=== PATIENT | female | born 1995 | race Caucasian/White ===

== ENCOUNTER 2017-10-12 19:20 | Emergency (ER) | payer BC, MEDICAID ==
--- NOTE | 2017-10-12 20:00 | ED Physician Documentation ---
PD HPI URI - Stated complaint Stated Complaint: SORE THROAT/CONGESTION - Chief complaint Chief Complaint: Heent - History obtained from History obtained from: Patient - History of Present Illness Timing - onset: Today (has had some sinus congestion and pressure with green discharge for few days to a week, but just started with sore throat this mrkathia.) Timing details: Gradual onset. No: Still present (sore throat less through the day, but still sore.) Associated symptoms: Nasal congestion, Sinus pain, Sore throat. No: Fever, Ear pain, Chest pain, Dyspnea Contributing factors: No: Sick contact Similar symptoms before: Has not had sx before Recently seen: Not recently seen Review of Systems Constitutional: denies: Fever, Chills Nose: reports: Rhinorrhea / runny nose, Sinus pressure / pain Throat: reports: Sore throat Respiratory: denies: Cough GI: denies: Vomiting, Diarrhea PD PAST MEDICAL HISTORY - Past Medical History Past Medical History: Yes Respiratory: Asthma Other Past Medical History: EOS - Past Surgical History Past Surgical History: Yes HEENT: Tonsil/Adenoidectomy - Present Medications Home Medications: Ambulatory Orders Medication Instructions Recorded Confirmed Azithromycin [Zithromax] 250 mg PO DAILY #4 tablet 10/12/17 Dexamethasone [Decadron] 4 mg PO DAILY #4 tablet 10/12/17 - Allergies Allergies/Adverse Reactions: Allergies Allergy/AdvReac Type Severity Reaction Status Date / Time acetaminophen [From Tylenol] Allergy Cramps Verified 10/12/17 19:29 - Social History Does the pt smoke?: No Smoking Status: Never smoker Does the pt drink ETOH?: No Does the pt have substance abuse?: No - Immunizations Immunizations are current?: Yes - POLST Patient has POLST: No PD ED PE NORMAL - Vitals Vital signs reviewed: Yes - General General: Alert and oriented X 3, Well developed/nourished - HEENT HEENT: Ears normal. No: Pharynx benign (mild redness but minimal swelling and no exudate. ) - Neck Neck: Supple, no meningeal sign, No adenopathy - Cardiac Cardiac: RRR, No murmur - Respiratory Respiratory: Clear bilaterally - Derm Derm: Normal color, Warm and dry, No rash - Neuro Neuro: Alert and oriented X 3, No motor deficit, Normal speech Results - Vitals Vitals: Vital Signs - 24 hr 10/12/17 10/12/17 19:25 20:22 Temperature 36.4 C L 36.4 C L Heart Rate 77 72 Respiratory 16 18 Rate Blood Pressure 148/103 H 144/98 H O2 Saturation 100 99 Oxygen O2 Source Room air PD MEDICAL DECISION MAKING - ED course Complexity details: considered differential (symptoms most c/w sinusitis with sore throat from drainage. ), d/w patient Departure - Departure Disposition: Home, Self Care Clinical Impression: Acute sinusitis Qualifiers: Sinusitis location: unspecified location Recurrence: non-recurrent Qualified Code(s): J01.90 - Acute sinusitis, unspecified Condition: Stable Record reviewed to determine appropriate education?: Yes Instructions: ED Sinusitis Abx Tx Prescriptions: Azithromycin [Zithromax] 250 mg PO DAILY #4 tablet Dexamethasone [Decadron] 4 mg PO DAILY #4 tablet Comments: Drink lots of fluids. Use some saline nose spray several times a day to help cleanse the nasal passage and promote sinus drainage. Zithromax and Decadron for a total of 5 days. Recheck if not improved over the next several days. Discharge Date/Time: 10/12/17 20:22
[2017-10-12] MEDS ORDERED: DEXAMETHASONE 10 MG/ML VIAL PO STA (20:13)
[2017-10-12] MEDS ORDERED: AZITHROMYCIN 250 MG TABLET PO STA (20:13)
[2017-10-12 20:23] VITALS: BP 144/98
== END 2017-10-12 20:22 | disposition home or self-care (01) ==
LOC: ED 19:20
DX: J01.90 Acute sinusitis, unspecified (principal); J45.909 Unspecified asthma, uncomplicated
CPT/HCPCS: 99283; A9270

== ENCOUNTER 2020-02-17 08:00 | Outpatient (CLI) | payer MEDICAID, OTHER | END 2020-02-17 08:01 | disposition home or self-care (01) | LOC: LAB.R 08:00 | PROVIDERS: ATTEND Registered Nurse | DX: Z20.828 Contact with and (suspected) exposure to other viral communicable diseases (principal) ==